=== PATIENT | male | born 2000 | race Two or more races ===

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

== ENCOUNTER → 2023-10-22 | Outpatient (CLI) | payer MEDICAID ==
[2023-10-22 09:39] LABS: Urine Bacteria None Seen /hpf (None Seen)
[2023-10-22 09:45] LABS: Basophils # (auto) 0.1 10 ^3/uL (0-0.2); Lymphocytes % (auto) 22.9 % (10.0-50.0); Monocytes # (auto) 0.7 10 ^3/uL (0-1.3); Neutrophils # (auto) 7.7 10 ^3/uL (1.6-8.6)
[2023-10-22 09:48] LABS: Basophils % (auto) 0.7 % (0.0-2.0); Eosinophils # (auto) 0.1 10 ^3/uL (0-0.8); Eosinophils % (auto) 1.3 % (0.0-7.0); Hematocrit 52.5 % (41.0-53.0); Hemoglobin 17.9 g/dL (13.5-17.5); Lymphocytes # (auto) 2.6 10 ^3/uL (0.4-5.4); Mean Corpuscular Hemoglobin 30.2 pg (28.0-32.0); Mean Corpuscular Hgb Conc. 34.2 g/dL (32.0-36.0); Mean Corpuscular Volume 88.3 fL (80.0-100.0); Monocytes % (auto) 6.5 % (0.0-12.0); Neutrophils % (auto) 68.6 % (37.0-80.0); Nucleated Red Blood Cells % 0.6 %; Red Blood Cells 5.95 10^6/uL (4.5-5.90); White Blood Cell 11.2 10^3/uL (4.4-10.8)
[2023-10-22 10:14] LABS: Alanine Aminotransferase 97 U/L (7-40); Albumin 4.7 g/dL (3.2-4.8); Alkaline Phosphatase 111 U/L (46-116); Anion Gap 10 (5-15); Aspartate Aminotransferase 36 U/L (13-40); BUN/Creatinine Ratio 8.5 (10.0-20.0); Blood Urea Nitrogen 6 mg/dL (9-23); Calcium 9.6 mg/dL (8.5-10.1); Carbon Dioxide 20 mmol/L (20-30); Chloride 105 mmol/L (98-107); Glucose 226 mg/dL (74-106); Potassium 4.2 mmol/L (3.5-5.1); Sodium 135 mmol/L (136-145); Triglycerides 774 mg/dL (< 150)
[2023-10-22 10:15] LABS: Bilirubin, Total 0.4 mg/dL (0.2-1.0); Cholesterol 204 mg/dL (< 200); HDL Cholesterol 32 mg/dL (40-59); Total Protein 7.4 g/dL (5.7-8.2)
[2023-10-22 10:23] LABS: Urine Blood Negative /uL (Negative); Urine Clarity Clear (Clear); Urine Color Yellow (Yellow); Urine Mucus FEW (None Seen); Urine Protein, UAD TRACE (Negative); Urine Specific Gravity 1.028 (1.001-1.035); Urine Urobilinogen Normal (Negative); Urine WBC 1 /hpf (0 - 3); Urine pH 6.5 (5.0-9.0)
== END | disposition home or self-care (01) ==
LOC: LAB 09:29
PROVIDERS: ATTEND Student in an Organized Health Care Education/Training Program
DX: E11.9 Type 2 diabetes mellitus without complications (principal); I10 Essential (primary) hypertension
CPT/HCPCS: 36415; 80053; 80061; 81001; 83036; 84443; 85025

== ENCOUNTER → 2024-02-24 | Outpatient (CLI) | payer MEDICAID ==
[2024-02-24 09:33] LABS: Urine Bacteria None Seen /hpf (None Seen)
[2024-02-24 09:58] LABS: Basophils # (auto) 0 10 ^3/uL (0-0.2); Eosinophils # (auto) 0.1 10 ^3/uL (0-0.8); Lymphocytes # (auto) 1.9 10 ^3/uL (0.4-5.4); Monocytes # (auto) 0.4 10 ^3/uL (0-1.3)
[2024-02-24 10:00] LABS: Basophils % (auto) 0.6 % (0.0-2.0); Eosinophils % (auto) 1.5 % (0.0-7.0); Hematocrit 49.5 % (41.0-53.0); Hemoglobin 17.9 g/dL (13.5-17.5); Lymphocytes % (auto) 26.9 % (10.0-50.0); Mean Corpuscular Hemoglobin 31.9 pg (28.0-32.0); Mean Corpuscular Hgb Conc. 36.2 g/dL (32.0-36.0); Mean Corpuscular Volume 88.4 fL (80.0-100.0); Monocytes % (auto) 6.1 % (0.0-12.0); Neutrophils # (auto) 4.6 10 ^3/uL (1.6-8.6); Neutrophils % (auto) 64.9 % (37.0-80.0); Nucleated Red Blood Cells % 0.2 %; Platelet Count (auto) 240 10^3/uL (140-450); Red Blood Cells 5.61 10^6/uL (4.5-5.90); Red Cell Distribution Width 13.2 % (11.8-14.3); Urine Blood Negative /uL (Negative); Urine Clarity Clear (Clear); Urine Color Light-Yellow (Yellow); Urine Protein, UAD Negative (Negative); Urine Specific Gravity 1.047 (1.001-1.035); Urine Sperm PRESENT /hpf (None Seen); Urine Urobilinogen Normal (Negative); Urine WBC 2 /hpf (0 - 3); Urine pH 5.5 (5.0-9.0); White Blood Cell 7.1 10^3/uL (4.4-10.8)
[2024-02-24 10:12] LABS: Creatinine, Urine 83.46 mg/dL (30.0-125.0)
[2024-02-24 10:17] LABS: Alanine Aminotransferase 169 U/L (7-40); Albumin 4.6 g/dL (3.2-4.8); Alkaline Phosphatase 96 U/L (46-116); Anion Gap 12 (5-15); Aspartate Aminotransferase 81 U/L (13-40); BUN/Creatinine Ratio 9.5 (10.0-20.0); Blood Urea Nitrogen 7 mg/dL (9-23); Calcium 9.8 mg/dL (8.7-10.4); Carbon Dioxide 20 mmol/L (20-30); Chloride 101 mmol/L (98-107); Glucose 302 mg/dL (74-106); Potassium 4.4 mmol/L (3.5-5.1); Sodium 133 mmol/L (136-145)
[2024-02-24 10:18] LABS: Bilirubin, Total 0.7 mg/dL (0.2-1.0); Total Protein 7.2 g/dL (5.7-8.2)
== END | disposition home or self-care (01) ==
LOC: LAB 09:14
PROVIDERS: ATTEND Student in an Organized Health Care Education/Training Program
DX: I10 Essential (primary) hypertension (principal); E11.9 Type 2 diabetes mellitus without complications
CPT/HCPCS: 36415; 80053; 81001; 82043; 82570; 83036; 85025

== ENCOUNTER 2024-08-19 11:21 | Emergency (ER) | payer OTHER ==
[~2024-08-19] VITALS: Ht 167.6 cm; Wt 85.5 kg
[2024-08-19 11:57] VITALS: O2SAT 98
[2024-08-19 12:19] LABS: Urine Bacteria FEW /hpf (None Seen); Urine Blood Negative /uL (Negative); Urine Clarity Clear (Clear); Urine Color Light-Yellow (Yellow); Urine Protein, UAD Negative (Negative); Urine Specific Gravity 1.038 (1.001-1.035); Urine Squamous Epithelial Cell FEW /hpf (<5); Urine Urobilinogen Normal (Negative); Urine WBC < 1 /HPF (0-3)
[2024-08-19 12:37] LABS: Amphetamine Screen, Urine Neg (NEGATIVE); Barbiturate Scree,Urine Neg (NEGATIVE); Benzodiazephine Screen, Urine Neg (NEGATIVE); Cannabinoid Screen, Urine Neg (NEGATIVE); Cocaine Screen, Urine Neg (NEGATIVE); Opiate Scree,Urine Neg (NEGATIVE); Phencyclidine Screen, Urine Neg (NEGATIVE)
--- NOTE | 2024-08-19 12:37 | ED.PDOC ---
Eye-HPI HPI Comments HPI: Poor Historian. 24-year-old male nonverbal accompanied by his mother bedside. Mother states he has been complaining for one-week history of a sore throat worse with swallowing food. She has to blend his food to be able to swallow however he is able to ingest liquid without any problems. Denies any other acute symptoms. Past Medical History: Diabetes and hypertension, possible developmental delay Past Surgical History: Craniotomy as a child from a fall injury REVIEW OF SYSTEMS: CONSTITUTIONAL: Denies acute: fever, diaphoresis, chills, generalized weakness. HEAD: Denies acute: headache, photophobia Eyes: Denies acute: Double vision, vision loss, eye pain, eye discharge. EARS: Denies acute: tinnitus, hearing loss, ear discharge, ear pain, THROAT: Denies acute: swelling, change in voice. NECK: Denies acute: neck pain, neck swelling, stiff neck. HEART: Denies acute : chest pain, palpitations, LUNGS: Denies acute: SOB, wheezing, cough, hemoptysis ABDOMEN: Denies acute: abdominal pain, Nausea, Vomiting, diarrhea, melena , hematemesis, hematochezia SKIN: Denies acute: rash, redness, lesions, itchiness. EXTREMITIES: Denies acute: calf pain, numbness, tingling, weakness, denies pain in extremity. Denies acute: Low back pain. Neuro: Denies acute: focal neurological deficit, motor or sensory focal neurological deficit, tremors, seizure like activity, confusion, dizziness, change in mental status, loss of bowel or bladder function, cauda equina like symptoms. : Denies acute: dysuria, hematuria, flank pain, increase in urinary frequency. PSYCH: Denies acute: hallucination, suicidal ideation, homicidal ideation. PHYSICAL EXAM: General: no acute distress, awake and alert. Head: normocephalic, atraumatic. Neck: supple, trachea is midline, no swelling. Throat: Normal phonation. No obstruction, no tongue swelling, Eyes:, no erythema, no purulent discharge, no proptosis, no icterus. Heart: regular rate, regular rhythm, no significant murmur appreciated. Lungs: no apparent respiratory distress, Able to speak in full sentences. No wheezing, no rhonchi, no crackles. No stridors Clear to auscultation bilaterally. Abdomen: non tender to palpation, non distended, soft, no guarding, no rebound, + bowel sounds. Neuro: Awake, Alert, oriented to name, self, situation, follows commands GCS=15. Speech is normal. Skin: no petechia, no purpura, no cyanosis, non-pale, not jaundice. Lower extremities: --no - Pitting edema no deformity, no focal swelling, no calf TTP. Makes eye contact. moves all four extremities. Face: no apparent facial droop. ED COURSE: Chief Complaint: Sore Throat Time Seen by MD: 11:34 Reviewed Notes: Nurses Notes, Allergies Allergies: Coded Allergies: NO KNOWN ALLERGIES (Unverified , 10/10/14) Home Meds Active Scripts Amoxicillin & Pot Clavulanate (AUGMENTIN TABLET) 875 Mg Tb, 875 MG PO BID for 7 Days, #14 TAB Prov:KHUSHBU REEVES DO 08/19/24 Information Source: Patient, Relative (Mother) Mode of Arrival: Ambulatory Family History Family History: Unknown Social History Smoker: Non-Smoker Alcohol: Denies ETOH Use Drugs: Denies Drug Use Was a procedure done? Was a procedure done?: No EENT DIFF Eye: N/A Sore Throat: Epiglottitis, Hand Foot Mouth Disease, Herpangina, Herpetic Stomatitis, Mononeucleosis, Mitesh's Angina, Peritonsillar Abscess, Peritonsillar Cellulitis, Pharyngitis, Diptheria, Streptococcal, Viral Pharyngitis, URI X-Ray, Labs, Meds, VS Vital Signs Date Time Temp Pulse Resp B/P (MAP) Pulse Ox O2 Delivery O2 Flow Rate FiO2 08/19/24 11:57 98 Room Air* 0 21 08/19/24 11:55 98.3 85 17 123/81 (95) 98 98.3 08/19/24 11:36 98.0 85 17 116/82 (93) 97 98.0 Lab Test 08/19/24 17:15 08/19/24 15:15 08/19/24 13:45 08/19/24 12:11 Range/Units Lactic Acid Level 2.2 *H 2.6 *H 3.0 *H 0.4-2.0 mmol/L White Blood Count 8.8 4.4-10.8 10^3/uL Red Blood Count 6.05 H 4.5-5.90 10^6/uL Hemoglobin 18.6 H 13.5-17.5 g/dL Hematocrit 52.5 41.0-53.0 % Mean Corpuscular Volume 86.8 80.0-100.0 fL Mean Corpuscular Hemoglobin 30.8 28.0-32.0 pg Mean Corpuscular Hemoglobin Concent 35.5 32.0-36.0 g/dL Red Cell Distribution Width 13.2 11.8-14.3 % Platelet Count 266 140-450 10^3/uL Mean Platelet Volume 9.1 6.9-10.8 fL Neutrophils (%) (Auto) 66.6 37.0-80.0 % Lymphocytes (%) (Auto) 23.8 10.0-50.0 % Monocytes (%) (Auto) 7.9 0.0-12.0 % Eosinophils (%) (Auto) 1.0 0.0-7.0 % Basophils (%) (Auto) 0.7 0.0-2.0 % Neutrophils # (Auto) 5.9 1.6-8.6 10 ^3/uL Lymphocytes # (Auto) 2.1 0.4-5.4 10 ^3/uL Monocytes # (Auto) 0.7 0-1.3 10 ^3/uL Eosinophils # (Auto) 0.1 0-0.8 10 ^3/uL Basophils # (Auto) 0.1 0-0.2 10 ^3/uL Nucleated Red Blood Cells 0.4 % Sodium Level 134 L 136-145 mmol/L Potassium Level 4.1 3.5-5.1 mmol/L Chloride Level 101 98-107 mmol/L Carbon Dioxide Level 23 20-31 mmol/L Anion Gap 10 5-15 Blood Urea Nitrogen 7 L 9-23 mg/dL Creatinine 0.70 0.700-1.30 mg/dL Glomerular Filtration Rate Calc 132 >90 mL/min BUN/Creatinine Ratio 10.0 10.0-20.0 Serum Glucose 234 H 74-106 mg/dL Calcium Level 9.9 8.7-10.4 mg/dL Total Bilirubin 0.9 0.2-1.0 mg/dL Aspartate Amino Transferase (AST) 96 H 13-40 U/L Alanine Aminotransferase (ALT) 152 H 7-40 U/L Alkaline Phosphatase 95 46-116 U/L Total Protein 7.5 5.7-8.2 g/dL Albumin 4.9 H 3.2-4.8 g/dL Thyroid Stimulating Hormone (TSH) 1.92 0.55-4.78 uIU/mL Group A Streptococcus Rapid Negative Test 08/19/24 11:57 Range/Units Urine Color Light-yellow Yellow Urine Clarity Clear Clear Urine pH 7.0 5.0-9.0 Urine Specific Hickman 1.038 H 1.001-1.035 Urine Protein Negative Negative Urine Ketones Trace Negative Urine Blood Negative Negative /uL Urine Nitrite Negative Negative Urine Bilirubin Negative Negative Urine Urobilinogen Normal Negative mg/dL Urine Leukocyte Esterase Negative Negative /uL Urine RBC <1 0 - 3 /hpf Urine Microscopic WBC < 1 0-3 /HPF Urine Squamous Epithelial Cells Few <5 /hpf Urine Bacteria Few H None Seen /hpf Urine Glucose 4+ H Normal mg/dL Urine Opiates Screen Neg NEGATIVE Urine Fentanyl Screen Neg NEGATIVE Urine Barbiturates Screen Neg NEGATIVE Urine Phencyclidine Screen Neg NEGATIVE Urine Amphetamines Screen Neg NEGATIVE Urine Benzodiazepines Screen Neg NEGATIVE Urine Cocaine Screen Neg NEGATIVE Urine Cannabinoids Screen Neg NEGATIVE Current Medications Medications (Trade) Dose Ordered Sig/Thomas Route Start Time Stop Time Status Last Admin Sodium Chloride 1,000 ml @ 1,000 mls/hr Q1H ONCE IV 08/19/24 12:45 08/19/24 13:44 DC 08/19/24 13:46 Dexamethasone Sodium Phosphate (Decadron Injection) 10 mg ONCE ONCE IV 08/19/24 13:45 08/19/24 13:46 DC 08/19/24 13:47 Ceftriaxone Sodium 50 ml @ 100 mls/hr ONCE ONCE IV 08/19/24 14:45 08/19/24 15:14 DC 08/19/24 15:22 Sodium Chloride 1,000 ml @ 1,000 mls/hr Q1H ONCE IV 08/19/24 16:30 08/19/24 17:29 DC 08/19/24 16:31 Sodium Chloride 1,000 ml @ 1,000 mls/hr Q1H ONCE IV 08/19/24 18:30 08/19/24 19:29 08/19/24 18:42 [facility] [address] [facility] [address] Ph: [phone] DIAGNOSTIC IMAGING Diagnostic Imaging Report : [id number] Signed PATIENT: KEYSHAWN DOWD ACCT: [id number] UNIT: [id number] : 2000 LOC: ER ROOM / BED: / AGE / SEX: 24 / M ADM STATUS: REG ER SERVICE [id number] ORDERING PHYSICIAN: KHUSHBU REEVES DO PROCEDURE(s): NK2CT - NECK WITH CONTRAST SOFT REASON: sensation of something in his throat. thyroid. ORDER NUMBER(s): [id number], ACCESSION NUMBER(s): [id number] CLINICAL INFORMATION: 24 years old, Male; sensation of something in his throat. Difficulty swallowing. TECHNIQUE: Axial CT images of the neck soft tissues were obtained after the uneventful administration of 100 mL Omnipaque 300 IV contrast. Coronal and sagittal reformatted images were obtained, stored, and reviewed. One or more of the following dose reduction techniques were used: Automated exposure control. Adjustment of mA and/or kV according to patient size. CTDIvol = 29.37, 0.41, 0.07 mGy DLP = 856.08 mGy-cm COMPARISON: None FINDINGS: Nasopharynx: Mildly prominent adenoid tonsils. Oropharynx: No evidence of mass or abscess. Unremarkable palatine tonsils and lingual tonsils. Hypopharynx/Larynx: Unremarkable. No mass or fluid collection. Paranasal sinuses: Mild mucosal thickening of the paranasal sinuses. Small retention cysts versus polyps in the left maxillary sinus. Lymph nodes: Mildly prominent level 2 cervical lymph nodes measuring up to 0.5 x 1.4 cm on the right 2.4 x 1.3 cm on the left demonstrating normal reniform shape and echogenic tam, likely reactive. Additional mildly prominent subcentimeter cervical lymph nodes and submandibular lymph nodes. Neck glands: Parotid glands, submandibular glands, and thyroid gland are u nremarkable. Vasculature: Unremarkable. Bones: Unremarkable. Lung apices: Unremarkable. Other findings: Incidental note is made of small bilateral cerebellar hemispheres partially visualized within the [id number] of the exam. IMPRESSION: 1. Mildly prominent bilateral level 2 cervical lymph nodes and additional subcentimeter cervical and submandibular lymph nodes, likely reactive. Correlate with clinical findings. 2. Mildly prominent adenoid tonsils. 3. No pharyngeal soft tissue mass or fluid collection identified 4. Small bilateral cerebellar hemispheres partially visualized, may be due to atrophy, hypoplasial, or associated with joanna cisterna magna. ATED BY: WILLIE CARD DO DICTATED DATE/TIME: 08/19/24 1546 SIGNED BY: WILLIE CARD DO SIGNED DATE/TIME: 08/19/24 1546 CC: Time of 1ST Reevaluation: 16:54 Reevaluation 1ST: Unchanged Time of 2ND Reevaluation: 17:52 Reevaluation 2ND: Improved Patient Education/Counseling: Other Family Education/Counseling: Diagnosis, Treatment Assigned to Dr. dr. Lawler. Awaiting repeat lactic acid after fluid resuscitation. Patient is nontoxic in appearance patient is stable. Patient no acute distress. I anticipate patient will be discharged home. Comments Patient presented with the above HPI.---sore throat---workup was initiated. patient was found with the above mentioned diagnosis. the following medications were ordered: please refer to order lists of meds and tests obtained by myself Dr. Reeves. Patient ED course and VS have been stabilized. Patient has been reassessed in the ED and remained in a stable condition. Pertinent incidental findings were discussed with the patient and/or family. Patient/family voices understanding and is agreeable with plan. Patient has been observed in the ED adequate length of time to insure improvement/stability. Escalation of care considered: Consideration of escalation to observation or admission Patient was DISCHARGED home in a stable condition. All the reports of any imaging studies that were ordered by myself were reviewed by myself. Departure 1 Departure Time of Disposition: 16:00 Impression: Primary Impression: Tonsillitis Additional Impressions: Sore throat Abnormal finding on CT scan UTI (urinary tract infection) Disposition: 01 HOME / SELF CARE / HOMELESS Condition: Stable Additional Instructions: Additional discharge instructions: You MUST follow-up with your primary care/family doctor in 1 to 2 days. If you are unable to see your primary care/family doctor, please return to our emergency room for re-assessment and re-evaluation in 1 to 2 days. Return to the emergency room here in our facility or to the nearest ER [facility] if your symptoms change or worsen. CONSULTATIONS: you MUST Follow-up for consultation as soon as possible with: ENT doctor in 1-2 days. Please call for appointment Neurology/neurosurgery in 1-2 days. Please call for appointment Gastroenterology as well regarding slightly elevated LFTs. Please call for appointment in 1-2 days. You MUST call the consultants office yourself to make an appointment. You may need to arrange that through your insurance and/or your primary/family doctor. If you are unable to see the real estate listing consultant in 1 to 2 days, you must return to our emergency room (or any other ER of your choice) for re-assessment and re- evaluation. Adequate fluid hydration. Below is a copy of your radiological report for follow up: [place] [address] Ph: [phone] DIAGNOSTIC IMAGING Diagnostic Imaging Report : [id number] Signed PATIENT: KEYSHAWN DOWD ACCT: [id number] UNIT: [id number] : 2000 LOC: ER ROOM / BED: / AGE / SEX: 24 / M ADM STATUS: REG ER SERVICE 1148 ORDERING PHYSICIAN: KHUSHBU REEVES DO PROCEDURE(s): NK2CT - NECK WITH CONTRAST SOFT REASON: sensation of something in his throat. thyroid. ORDER NUMBER(s): [id number], ACCESSION NUMBER(s): [id number] CLINICAL INFORMATION: 24 years old, Male; sensation of something in his throat. Difficulty swallowing. TECHNIQUE: Axial CT images of the neck soft tissues were obtained after the uneventful administration of 100 mL Omnipaque 300 IV contrast. Coronal and sagittal reformatted images were obtained, stored, and reviewed. One or more of the following dose reduction techniques were used: Automated exposure control. Adjustment of mA and/or kV according to patient size. CTDIvol = 29.37, 0.41, 0.07 mGy DLP = 856.08 mGy-cm COMPARISON: None FINDINGS: Nasopharynx: Mildly prominent adenoid tonsils. Oropharynx: No evidence of mass or abscess. Unremarkable palatine tonsils and lingual tonsils. Hypopharynx/Larynx: Unremarkable. No mass or fluid collection. Paranasal sinuses: Mild mucosal thickening of the paranasal sinuses. Small retention cysts versus polyps in the left maxillary sinus. Lymph nodes: Mildly prominent level 2 cervical lymph nodes measuring up to 0.5 x 1.4 cm on the right 2.4 x 1.3 cm on the left demonstrating normal reniform shape and echogenic tam, likely reactive. Additional mildly prominent subcentimeter cervical lymph nodes and submandibular lymph nodes. Neck glands: Parotid glands, submandibular glands, and thyroid gland are unremarkable. Vasculature: Unremarkable. Bones: Unremarkable. Lung apices: Unremarkable. Other findings: Incidental note is made of small bilateral cerebellar hemispheres partially visualized within the [id number]-boat of the exam. IMPRESSION: 1. Mildly prominent bilateral level 2 cervical lymph nodes and additional subcentimeter cervical and submandibular lymph nodes, likely reactive. Correlate with clinical findings. 2. Mildly prominent adenoid tonsils. 3. No pharyngeal soft tissue mass or fluid collection identified 4. Small bilateral cerebellar hemispheres partially visualized, may be due to atrophy, hypoplasial, or associated with joanna cisterna magna. ATED BY: WILLIE CARD DO DICTATED DATE/TIME: 08/19/24 154 SIGNED BY: WILLIE CARD DO SIGNED DATE/TIME: 08/19/24 154 CC: e-Prescriptions Amoxicillin & Pot Clavulanate (AUGMENTIN TABLET) 875 Mg Tb 875 MG PO BID for 7 Days, #14 TAB Prov: KHUSHBU REEVES DO 08/19/24 Discharged With: Self Critical Care Note Critical Care Time?: Yes (35 min-critical care time only) I personally scribed for KHUSHBU REEVES DO ([email or web address]) on 08/19/24 at 16:00. Electronically submitted by Luis Farrar ([email or web address]). KHUSHBU REEVES DO Aug 19, 2024 12:37
[2024-08-19] MEDS: DexAMETHasone SOD PHOS 10MG/1ML VIAL INJ IM ONE (13:42)
[2024-08-19] MEDS: SODIUM CHLORIDE 0.9% 1,000 ML IV ONE ×3 (13:46→18:42)
[2024-08-19 13:47] LABS: Rapid Strep A Screen-Throat Negative
[2024-08-19] MEDS: DexAMETHasone SOD PHOS 10MG/1ML VIAL INJ IV ONE (13:47)
[2024-08-19 14:22] LABS: Alanine Aminotransferase 152 U/L (7-40); Albumin 4.9 g/dL (3.2-4.8); Alkaline Phosphatase 95 U/L (46-116); Anion Gap 10 (5-15); Aspartate Aminotransferase 96 U/L (13-40); Bilirubin, Total 0.9 mg/dL (0.2-1.0); Blood Urea Nitrogen 7 mg/dL (9-23); Calcium 9.9 mg/dL (8.7-10.4); Carbon Dioxide 23 mmol/L (20-31); Chloride 101 mmol/L (98-107); Glucose 234 mg/dL (74-106); Potassium 4.1 mmol/L (3.5-5.1); Sodium 134 mmol/L (136-145); Total Protein 7.5 g/dL (5.7-8.2)
[2024-08-19 14:34] LABS: Basophils # (auto) 0.1 10 ^3/uL (0-0.2); Mean Corpuscular Volume 86.8 fL (80.0-100.0)
[2024-08-19 14:36] LABS: Basophils % (auto) 0.7 % (0.0-2.0); Eosinophils # (auto) 0.1 10 ^3/uL (0-0.8); Hematocrit 52.5 % (41.0-53.0); Hemoglobin 18.6 g/dL (13.5-17.5); Lymphocytes # (auto) 2.1 10 ^3/uL (0.4-5.4); Lymphocytes % (auto) 23.8 % (10.0-50.0); Mean Corpuscular Hemoglobin 30.8 pg (28.0-32.0); Mean Corpuscular Hgb Conc. 35.5 g/dL (32.0-36.0); Monocytes # (auto) 0.7 10 ^3/uL (0-1.3); Monocytes % (auto) 7.9 % (0.0-12.0); Neutrophils # (auto) 5.9 10 ^3/uL (1.6-8.6); Neutrophils % (auto) 66.6 % (37.0-80.0); Nucleated Red Blood Cells % 0.4 %; Platelet Count (auto) 266 10^3/uL (140-450); Red Blood Cells 6.05 10^6/uL (4.5-5.90); Red Cell Distribution Width 13.2 % (11.8-14.3); White Blood Cell 8.8 10^3/uL (4.4-10.8)
[2024-08-19] MEDS: cefTRIAXone 1GM/50ML D5W 50 ML IV ONE (15:22)
[2024-08-19] MEDS: IOHEXOL 300 MG/ML 100ML BOTTLE IJ ONE (15:24)
--- NOTE | 2024-08-19 15:49 | DVH ---
CLINICAL INFORMATION: 24 years old, Male; sensation of something in his throat. Difficulty swallowi ng. TECHNIQUE: Axial CT images of the neck soft tissues were obtained after the uneventful administration of 100 mL Omnipaque 300 IV contrast. Coronal and sagittal reformatted images were obtained, stored, and reviewed. One or more of the following dose reduction techniques were used: Automated exposure co ntrol. Adjustment of mA and/or kV according to patient size. CTDIvol = 29.37, 0.41, 0.07 mGy DLP = 856.08 mGy-cm COMPARISON: None FINDINGS: Nasopharynx: Mildly prominent adenoid tonsils. Oropharynx: No evidence of mass or abscess. Unremarkable palatine tonsils and lingual tonsils. Hypopharynx/Larynx: Unremarkable. No mass or fluid collection. Paranasal sinuses: Mild mucosal thickening of the paranasal sinuses. Small retention cysts versus willem yps in the left maxillary sinus. Lymph nodes: Mildly prominent level 2 cervical lymph nodes measuring up to 0.5 x 1.4 cm on the right 2.4 x 1.3 cm on the left demonstrating normal reniform shape and echogenic tam, likely reactive. Add itional mildly prominent subcentimeter cervical lymph nodes and submandibular lymph nodes. Neck glands: Parotid glands, submandibular glands, and thyroid gland are unremarkable. Vasculature: Unremarkable. Bones: Unremarkable. Lung apices: Unremarkable. Other findings: Incidental note is made of small bilateral cerebellar hemispheres partially visualize d within the [id number] of the exam. IMPRESSION: 1. Mildly prominent bilateral level 2 cervical lymph nodes and additional subcentimeter cervical and submandibular lymph nodes, likely reactive. Correlate with clinical findings. 2. Mildly prominent adenoid tonsils. 3. No pharyngeal soft tissue mass or fluid collection identified 4. Small bilateral cerebellar hemispheres partially visualized, may be due to atrophy, hypoplasial, o r associated with joanna cisterna magna.
[2024-08-19] MEDS ORDERED: AUG875T PO (16:01)
[2024-08-19 18:21] LABS: Lactic Acid w/Reflex 2.2 mmol/L (0.4-2.0)
[2024-08-19 21:03] VITALS: BP 126/71; PULSE 76; RESP 17; TEMP 98.2
== END 2024-08-19 21:02 | disposition home or self-care (01) ==
LOC: ER 11:21
DX: J03.90 Acute tonsillitis, unspecified (principal); N39.0 Urinary tract infection, site not specified; I10 Essential (primary) hypertension; E11.9 Type 2 diabetes mellitus without complications; Z98.890 Other specified postprocedural states
CPT/HCPCS: 36415; 70491; 80053; 80307; 81001; 83605; 84443; 85025; 87070; 87880; 96361; 96365; 96375; 99285; J0696; J1100; J7030; Q9967